=== PATIENT | female | born 1990 | race Caucasian/White ===

== ENCOUNTER 2017-02-27 00:10 | Emergency (ER) | payer BC ==
--- NOTE | 2017-02-27 00:41 | EDM.PDOC ---
ED HPI GENERAL MEDICAL PROBLEM - General Chief Complaint: Abdominal Pain Stated Complaint: ABDOMINAL PAIN Time Seen by Provider: 02/27/17 00:35 Source of Information: Reports: Patient History Limitations: Reports: No Limitations - History of Present Illness INITIAL COMMENTS - FREE TEXT/NARRATIVE: Patient presents to ER with complaints of abdominal pain for the last 2 hours. States started noting pain in the lower quadrants bilaterally. Did have 2 episodes of vomiting at home. Pain so intense she couldn't stand up. Admits that is somewhat better now but still present. No burning with urination. No blood in her urine or stools. No diarrhea. States bowel movements have been normal. Has an IUD so does not have routine menstrual cycles. NO history of ovarian cysts. No previous abdominal surgeries. Onset: Today, Sudden Duration: Hour(s): Location: Reports: Abdomen Quality: Reports: Sharp Severity: Moderate Improves with: Reports: None Associated Symptoms: Reports: Nausea/Vomiting. Denies: Fever/Chills, Shortness of Breath Treatments ANTHROPOLOGIST PHYSICAL: Reports: NSAIDS, Other Medication(s) Other Treatments ANTHROPOLOGIST PHYSICAL: prilosec Abdomen Pain Score (Numeric/FACES): 5 - Related Data Allergies Allergy/AdvReac Type Severity Reaction Status Date / Time cocoa Allergy Hives Verified 02/27/17 00:14 Home Meds: Home Meds Propranolol HCl [Propranolol] 1 tab PO BID 02/27/17 [History] Past Medical History Neurological History: Reports: Migraines - Past Surgical History Musculoskeletal Surgical History: Reports: Other (See Below) Other Musculoskeletal Surgeries/Procedures:: ACL REPAIR Social & Family History - Tobacco Use Smoking Status *Q: Never Smoker ED ROS GENERAL - Review of Systems Review Of Systems: See Below Constitutional: Denies: Fever, Chills, Malaise, Weakness, Decreased Appetite HEENT: Reports: No Symptoms Respiratory: Denies: Shortness of Breath, Cough Cardiovascular: Denies: Chest Pain, Edema, Lightheadedness Endocrine: Denies: Fatigue GI/Abdominal: Reports: Abdominal Pain, Nausea, Vomiting. Denies: Black Stool, Bloody Stool, Constipation, Diarrhea, Decreased Appetite : Reports: No Symptoms Musculoskeletal: Reports: No Symptoms Skin: Reports: No Symptoms Neurological: Reports: No Symptoms ED EXAM, GI/ABD - Physical Exam Exam: See Below Exam Limited By: No Limitations General Appearance: Alert, WD/WN, No Apparent Distress Ears: Normal External Exam, Normal TMs Nose: Normal Inspection, Normal Mucosa, No Blood Throat/Mouth: Normal Inspection, Normal Oropharynx Head: Normocephalic Neck: Normal Inspection, Supple, Non-Tender Respiratory/Chest: No Respiratory Distress, Lungs Clear, Normal Breath Sounds Cardiovascular: Regular Rate, Rhythm GI/Abdominal Exam: Normal Bowel Sounds, Soft, Tender Extremities: Normal Inspection, Normal Capillary Refill Neurological: Alert, Oriented Skin Exam: Warm, Dry Course - Vital Signs Last Recorded V/S: Last Vital Signs Temp 97.8 F 02/27/17 00:10 Pulse 90 02/27/17 00:10 Resp 16 02/27/17 00:10 BP 111/55 L 02/27/17 00:10 Pulse Ox 100 02/27/17 00:10 - Orders/Labs/Meds Orders: Active Orders 24 hr Category Date Time Status Abdomen 2V AP Flat Upright [CR] Stat Exams 02/27/17 00:23 Taken CULTURE URINE [RM] Stat Lab 02/27/17 00:27 Received Sulfamethoxazole/Trimethoprim [Septra DS] Med 02/27/17 01:09 Once 1 tab PO ONETIME ONE Medication Orders Trimethoprim/Sulfamethoxazole (Septra Ds) 1 tab PO ONETIME ONE Stop: 02/27/17 01:10 Labs: Laboratory Tests 02/27/17 02/27/17 02/27/17 Range/Units 00:27 00:27 00:40 WBC 9.0 (5.0-10.0) 10^3/uL RBC 3.55 L (4.00-5.50) 10^6/uL Hgb 10.9 L (12.0-16.0) g/dL Hct 31.9 L (37.0-47.0) % MCV 89.9 (82.0-94.0) fL MCH 30.7 (27.0-32.0) pg MCHC 34.2 (33.0-38.0) g/dL RDW Coeff of Judy 12.3 (11.0-15.0) % Plt Count 250 (150-400) 10^3/uL Neut % (Auto) 72.0 (35-85) % Lymph % (Auto) 20.0 (10-55) % Cassia % (Auto) 6.8 (0-16) % Eos % (Auto) 1.0 (0-5) % Baso % (Auto) 0.2 (0-3) % Neut # (Auto) 6.50 (1.80-7.00) 10^3/uL Lymph # (Auto) 1.81 (1.00-4.80) 10^3/uL Cassia # (Auto) 0.61 (0.00-0.80) 10^3/uL Eos # (Auto) 0.09 (0.00-0.45) 10^3/uL Baso # (Auto) 0.02 10^3/uL Sodium (136-145) mEq/L Potassium (3.5-5.0) mEq/L Chloride (98-106) mEq/L Carbon Dioxide (21-32) mmol/L BUN (7-18) mg/dL Creatinine (0.6-1.0) mg/dL Est Cr Clr Drug Dosing mL/min Estimated GFR (MDRD) (>=60) mL/min Glucose (75-99) mg/dL Calcium (8.4-10.1) mg/dL Total Bilirubin (0.0-1.0) mg/dL AST (15-37) U/L ALT (12-78) U/L Alkaline Phosphatase (46-116) U/L C-Reactive Protein (0.2-0.8) mg/dL Total Protein (6.4-8.2) g/dL Albumin (3.4-5.0) g/dL Amylase (25-115) U/L Urine Color Yellow (YELLOW) Urine Appearance Clear (CLEAR) Urine pH 7.0 (4.5-8.0) Ur Specific Lamar 1.020 (1.003-1.020) Urine Protein Negative (NEGATIVE) mg/dL Urine Glucose (UA) Negative (NEGATIVE) mg/dL Urine Ketones 15 H (NEGATIVE) mg/dL Urine Occult Blood Negative (NEGATIVE) Urine Nitrite Negative (NEGATIVE) Urine Bilirubin Negative (NEGATIVE) Urine Urobilinogen 1.0 (0.2-1.0) EU/dL Ur Leukocyte Esterase Small H (NEGATIVE) Urine RBC Not seen (0-5) /HPF Urine WBC 0-5 (0-5) /HPF Ur Squamous Epith Cells Few H (NOT SEEN) /HPF Urine Bacteria Occasional H (NOT SEEN) /HPF Urine Mucus Occasional H (NOT SEEN) /HPF Urine HCG, Qual Negative 02/27/17 02/27/17 Range/Units 00:40 00:40 WBC (5.0-10.0) 10^3/uL RBC (4.00-5.50) 10^6/uL Hgb (12.0-16.0) g/dL Hct (37.0-47.0) % MCV (82.0-94.0) fL MCH (27.0-32.0) pg MCHC (33.0-38.0) g/dL RDW Coeff of Judy (11.0-15.0) % Plt Count (150-400) 10^3/uL Neut % (Auto) (35-85) % Lymph % (Auto) (10-55) % Cassia % (Auto) (0-16) % Eos % (Auto) (0-5) % Baso % (Auto) (0-3) % Neut # (Auto) (1.80-7.00) 10^3/uL Lymph # (Auto) (1.00-4.80) 10^3/uL Cassia # (Auto) (0.00-0.80) 10^3/uL Eos # (Auto) (0.00-0.45) 10^3/uL Baso # (Auto) 10^3/uL Sodium 139 (136-145) mEq/L Potassium 3.8 (3.5-5.0) mEq/L Chloride 103 (98-106) mEq/L Carbon Dioxide 25 (21-32) mmol/L BUN 20 H (7-18) mg/dL Creatinine 0.8 (0.6-1.0) mg/dL Est Cr Clr Drug Dosing 113.46 mL/min Estimated GFR (MDRD) > 60 (>=60) mL/min Glucose 107 H (75-99) mg/dL Calcium 8.9 (8.4-10.1) mg/dL Total Bilirubin 0.5 (0.0-1.0) mg/dL AST 16 (15-37) U/L ALT 20 (12-78) U/L Alkaline Phosphatase 33 L (46-116) U/L C-Reactive Protein < 0.2 L (0.2-0.8) mg/dL Total Protein 6.8 (6.4-8.2) g/dL Albumin 3.8 (3.4-5.0) g/dL Amylase 60 (25-115) U/L Urine Color (YELLOW) Urine Appearance (CLEAR) Urine pH (4.5-8.0) Ur Specific Lamar (1.003-1.020) Urine Protein (NEGATIVE) mg/dL Urine Glucose (UA) (NEGATIVE) mg/dL Urine Ketones (NEGATIVE) mg/dL Urine Occult Blood (NEGATIVE) Urine Nitrite (NEGATIVE) Urine Bilirubin (NEGATIVE) Urine Urobilinogen (0.2-1.0) EU/dL Ur Leukocyte Esterase (NEGATIVE) Urine RBC (0-5) /HPF Urine WBC (0-5) /HPF Ur Squamous Epith Cells (NOT SEEN) /HPF Urine Bacteria (NOT SEEN) /HPF Urine Mucus (NOT SEEN) /HPF Urine HCG, Qual Meds: Medications Generic Name Dose Route Start Last Admin Trade Name Freq PRN Reason Stop Dose Admin Trimethoprim/Sulfamethoxazole 1 tab 02/27/17 01:09 Septra Ds PO 02/27/17 01:10 ONETIME ONE - Re-Assessments/Exams Free Text/Narrative Re-Assessment/Exam: 02/27/17 01:11 Labs essentially negative. UA shows bacteruria. Will culture. Xrays show a great deal of stool present but no obstruction. Departure - Departure Time of Disposition: 01:12 Disposition: Home, Self-Care 01 Condition: Good Clinical Impression: Constipation, UTI (urinary tract infection) - Discharge Information Referrals: Renita Lowry PA [Primary Care Provider] - Forms: ED Department Discharge Additional Instructions: 1. Push fluids 2. Miralax daily 3. Bactrim DS one twice day for 3 days. Will notify you once full culture is done 4. Follow up if fever, ongoing pain, further nausea or vomiting for repeat labs to be done at that time. 5. Call with any questions - My Orders Last 24 Hours: My Active Orders 02/27/17 00:23 Abdomen 2V AP Flat Upright [CR] Stat 02/27/17 00:27 CULTURE URINE [RM] Stat 02/27/17 01:09 Sulfamethoxazole/Trimethoprim [Septra DS] 1 tab PO ONETIME ONE - Assessment/Plan Last 24 Hours: My Active Orders 02/27/17 00:23 Abdomen 2V AP Flat Upright [CR] Stat 02/27/17 00:27 CULTURE URINE [RM] Stat 02/27/17 01:09 Sulfamethoxazole/Trimethoprim [Septra DS] 1 tab PO ONETIME ONE
[2017-02-27 00:58] LABS: CHLORIDE,CL 103 mEq/L (98-106); SODIUM,NA 139 mEq/L (136-145)
[2017-02-27] MEDS ORDERED: Sulfamethoxazole/Trimethoprim 800-160 MG Tab PO ONE (01:09)
== END 2017-02-27 01:24 | disposition home or self-care (01) ==
LOC: CC.ED 00:10
DX: K59.00 Constipation, unspecified (principal); N39.0 Urinary tract infection, site not specified; Z91.018 Allergy to other foods
CPT/HCPCS: 36415; 74019; 80053; 81001; 81025; 82150; 85025; 86140; 87086; 99284; A9270